=== PATIENT | female | born 1980 | race Caucasian/White ===

== ENCOUNTER 2021-12-29 10:23 | Outpatient (CLI) | payer BC | END 2021-12-29 10:24 | disposition home or self-care (01) | LOC: SCSMRI 10:23 | PROVIDERS: ATTEND Internal Medicine | DX: R05.3 Chronic cough (principal); R53.1 Weakness; M50.321 Other cervical disc degeneration at C4-C5 level | CPT/HCPCS: 71046; 72141 ==

== ENCOUNTER 2022-03-22 12:25 | Outpatient (CLI) | payer BC | END 2022-03-22 12:26 | disposition home or self-care (01) | LOC: SCSRAD 12:25 | PROVIDERS: ATTEND Anesthesiology Pain Medicine | DX: M47.812 Spondylosis without myelopathy or radiculopathy, cervical region (principal) | CPT/HCPCS: 72052 ==